=== PATIENT | male | born 1970 | race Caucasian/White ===

== ENCOUNTER 2016-08-01 16:18 | Emergency (ER) | payer OTHER ==
--- NOTE | 2016-08-01 16:34 | PDOC ---
GI Bleed/Rectal Complaint HPI - General Chief Complaint: GI Bleed / Rectal Pain Stated Complaint: feels like he is starting to bleed Date Seen by Provider: 08/01/16 Time Seen by Provider: 16:30 Source: POSITIVE: Patient, Spouse Exam Limitations: POSITIVE: No limitations Nurse's Notes Reviewed & Considered: Yes - History of Present Illness Initial Comments: Patient comes in today with weakness, chills, and shortness of breath. He was recently seen and hospitalized here at [facility] and then transferred to [facility] with a GI bleed. While here in the hospital he received 6 units of blood prior to his transfer. Review of laboratory findings from [facility] show hemoglobin 9.7 hematocrit 28.5 white count of 18.5 platelets 100 with a PT of 11.4 INR of 1.05. Body Location Affected: REPORTS: Abdomen Timing: REPORTS: Constant, Unknown (onset time) Duration: Unknown Severity: Severe Quality: REPORTS: Cramping, "Pain", Sharpness, Throbbing Context: REPORTS: None Associated Symptoms: REPORTS: Periumbilical, Nausea Similar Symptoms Previously: Yes (GI bleed from esophageal mass.) Recent Care Received: REPORTS: Recently Seen, Treated by MD, Hospitalized - Patient Home Medications Home Medications: Home Medications Cetirizine HCl [Zyrtec] 10 mg PO DAILY tab 11/28/14 Amlodipine Besylate 1 tab PO DAILY #90 tab 12/26/15 Lisinopril 1 tab PO DAILY #90 tab 12/26/15 Ondansetron [Zofran Odt] 8 mg PO Q8H #30 tab 06/07/16 Duloxetine HCl [Cymbalta] 1 cap PO QD #30 cap 06/14/16 Pregabalin [Lyrica] 1 cap PO BID #60 cap 06/14/16 Dronabinol [Marinol] 5 mg PO Q4H PRN #120 cap 06/28/16 Fentanyl 12 mcgh TRANSDERM Q72H #10 patch 06/28/16 Capecitabine [Xeloda] 1,500 mg PO BID tab 07/21/16 Oxaliplatin 280 mg IV q 3 weeks vial 07/21/16 Prochlorperazine Maleate 10 mg PO DAILY #45 07/21/16 predniSONE Tab [Deltasone Tab] 2 tab PO DAILY #10 tab 07/21/16 - Patient Allergies Allergies/Adverse Reactions: Allergies Allergy/AdvReac Type Severity Reaction Status Date / Time erythromycin base Allergy .GI UPSET Verified 07/28/16 06:44 Past Medical History - heen HEENT History: Denies History Cardiovascular History: Hypertension Respiratory History: Snoring Gastrointestinal History:  Additional Gastrointestinal History: ESOPHAGEAL MASS. DIFFICULTY SWALLOWING Genitourinary History: Denies History Endocrine History: Denies History Musculoskeletal History: Arthritis, Back Pain Prosthesis or Implant: No Additional Musculoskeletal History: LUMBAR DISC DISEASE Neurological History: Denies History Blood Disorders: Anemia Psychiatric History: Denies History History of Sexually Transmitted Diseases: No Cancer History: Denies History Cancer Treatment / Date(s) of Treatment: WAS DUE FOR CHEMO TUESDAY LAST WEEK History of MDRO: No History of Other Communicable Diseases: No Alcohol Use: Heavy Substance Use Type: None Previous Surgical History: Yes Type / Date of Surgery: EGD WITH BX/APPY/ LEFT KNEE SCOPE X 2/ RIGHT KNEE SCOPE X 1. RIGHT SHOULDER SCOPE X 2/LEFT SHOULDER SCOPE X 1/LEFT ANKLE FUSION/OPEN LEFT KNEE SX Anesthesia Reactions: No Malignant Hyperthermia: No Significant Family History: Cancer, Hypertension ROS - Limitations ROS Limitations: No Limitations Constitution: REPORTS: Chills Cardiovascular: REPORTS: Denies Cardiac Symptoms Respiratory: REPORTS: Shortness Of Breath Neurological: REPORTS: Denies Neuro Symptoms Gastrointestinal: REPORTS: Abdominal Pain, Nausea Musculoskeletal: REPORTS: Denies MS Symptoms Genitourinary: REPORTS: Denies Symptoms Eyes: REPORTS: Denies Symptoms ENT: REPORTS: Denies Symptoms Skin: REPORTS: Denies Skin Symptoms Lympathic: REPORTS: Swollen Glands (cervical region with tender nodes.) Immunologic: POSITIVE: Denies Symptoms Psychiatric: POSITIVE: Denies Psych Symptoms GI Bleed / Rectal Complaint PE - General Appearance General Appearance: POSITIVE: Alert, Cooperative, Lethargic, Moderate Distress - HEENT HEENT: POSITIVE: Head Inspection Nml, Eyes Inspection Nml, Ears Inspection Nml, Nose Inspection Nml, Oral/Dental Inspect. Nml, Pharynx Inspect. Nml, PERRL, EOMI - Neck Neck: POSITIVE: Lymphadenopathy - Respiratory Respiratory: POSITIVE: No Respiratory Distress - Cardiovascular Cardiovascular: POSITIVE: Regular Rate and Rhythm, Heart Sounds Normal - Abdomen Abdomen: Soft: (All Quadrants), Normal Bowel Sounds: (All Quadrants), Tenderness Noted: (LLQ), (RLQ), (LUQ), (RUQ) - Skin Skin: POSITIVE: Color Normal, No Rash, Warm, Dry - Extremities Extremity: Non-Tender: (All Extremities), Normal ROM: (All Extremities), Normal Inspection: (All Extremities) - Neurological / Psychological Neurological: POSITIVE: Affect Apporpriate, Oriented X3 GI Bleed / Rectal Progress - Results Reviewed by me Lab Results Reviewed: Yes Lab Results:: Laboratory Results 08/01/16 Range/Units 16:31 WBC 16.29 H (4.8-10.8) 10^3/uL RBC 3.35 L (4.70-6.10) 10^6/uL Hgb 9.9 L (14.0-18.0) g/dL Hct 29.7 L (42.0-52.0) % MCV 88.7 (80-90) FL MCH 29.6 (27-31) PG MCHC 33.3 (33-37) g/dL RDW Std Deviation 50.4 H (39-50) fL RDW Coeff of Urban 18.2 H (11.5-14.5) % Plt Count 127 L (140-350) 10*3/uL MPV 10.9 (7.4-12.2) FL Neutrophils % (Manual) 69 (50-80) % Band Neutrophils % 2 (0-10) % Lymphocytes % (Manual) 21 (10-50) % Monocytes % (Manual) 4 (0-12) % Eosinophils % (Manual) 0 (0-8) % Basophils % (Manual) 1 (0-1) % Metamyelocytes % 3 % Myelocytes % 0 % Promyelocytes % 0 % Blast Cells 0 (0-1) % WBC Morphology Comment Normal morphology (NORM) Plt Morphology Comment Normal morphology (NORM) RBC Morph Comment See comments (NORM) PT 10.4 (9.7-11.4) secs INR 1.01 (0.00-5.90) N/A Sodium 133 L (135-145) meq/L Potassium 4.2 (3.8-5.2) meq/L Chloride 98 (98-112) meq/L Carbon Dioxide 27 (23-33) meq/L Anion Gap 8 (5-20) BUN 14 (7-22) mg/dL Creatinine 1.1 (0.70-1.50) mg/dL Estimated GFR > 60 (>60 ml/min/1.73m(2)) BUN/Creatinine Ratio 12.72 (6-20) Glucose 90 (78-110) mg/dL Calculated Osmolality 276.0 (267-292) mOsm/kg Calcium 8.6 L (8.7-10.7) mg/dL Magnesium 2.0 (1.6-2.4) mg/dL Total Bilirubin 0.7 (0.3-1.2) mg/dL AST 65 H (21-57) IU/L ALT 56 (21-72) IU/L Alkaline Phosphatase 247 H (38-126) IU/L Total Protein 6.1 (6.1-8.0) g/dL Albumin 3.3 L (3.5-4.8) g/dL Globulin 2.8 (2.50-4.10) g/dL Albumin/Globulin Ratio 1.10 L (1.3-2.0) mg/g - Patient's Progress Pain Medication Addressed: POSITIVE: Yes Re-Examine Time:: 17:35 (improved pain and weakness.) Status: POSITIVE: Improved MDM / ED Course: Patient brought into the emergency Department, examined, an IV was started, blood drawn and sent to the lab for studies. Patient received a liter of normal , morphine sulfate, and Zofran. His symptoms did improve. Laboratory findings: EKG shows him to have improved since he was seen at [facility] to 9.9. 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 Plan: Discharge home follow up with his oncologist on Tuesday. - Consult Counseled: POSITIVE: Patient, Family, RE: Lab Results, RE: DX, RE: Need for F/U Patient Care Time - Estimated PCT Patient Care Time (In Minutes): 60 Vital Signs - VS Reviewed Vital Signs Reviewed: Yes Discharge Clinical Impression: Abdominal pain Discharge Disposition: Discharged to Home Condition: Fair Patient Instructions Given at Discharge: Gastrointestinal Bleeding (ED)
[2016-08-01 16:50] LABS: HEMATOCRIT 29.7 % (42.0-52.0); HEMOGLOBIN 9.9 g/dL (14.0-18.0); MEAN CORPUSCULAR HEMOGLOBIN 29.6 PG (27-31); MEAN CORPUSCULAR HGB CONC 33.3 g/dL (33-37); MEAN PLATELET VOLUME 10.9 FL (7.4-12.2); RDW COEFFICIENT OF VARIATION 18.2 % (11.5-14.5); RED BLOOD COUNT 3.35 10^6/uL (4.70-6.10); WHITE BLOOD COUNT 16.29 10^3/uL (4.8-10.8)
[2016-08-01] MEDS: NORMAL SALINE 10 ML SYRINGE FLUSH IVP PRN (16:51)
[2016-08-01] MEDS: Sodium Chloride 0.9% 1,000 ML PRIMARY IV ONE (16:51)
[2016-08-01] MEDS: ONDANSETRON 4 MG/2 ML VIAL IVP ONE (16:53)
[2016-08-01] MEDS: MORPHINE SULFATE 2 MG/1 ML IVP ONE (16:54)
[2016-08-01 16:56] LABS: PROTHROMBIN TIME 10.4 secs (9.7-11.4)
[2016-08-01 16:57] LABS: ASPARTATE AMINO TRANSFERASE 65 IU/L (21-57); BILIRUBIN,TOTAL 0.7 mg/dL (0.3-1.2); BLOOD UREA NITROGEN 14 mg/dL (7-22); BUN/CREATININE RATIO 12.72 (6-20); CALCIUM 8.6 mg/dL (8.7-10.7); CHLORIDE 98 meq/L (98-112); CREATININE 1.1 mg/dL (0.70-1.50); EST GLOMERULAR FILTRATION > 60 (>60 ml/min/1.73m(2)); GLUCOSE 90 mg/dL (78-110); POTASSIUM 4.2 meq/L (3.8-5.2); SODIUM 133 meq/L (135-145); TOTAL PROTEIN 6.1 g/dL (6.1-8.0)
[2016-08-01 17:02] LABS: BAND NEUTROPHILS % 2 % (0-10); NEUTROPHILS % (MANUAL) 69 % (50-80); PLATELET MORPHOLOGY COMMENT NORMAL MORPHOLOGY (NORM)
[2016-08-01 17:03] LABS: BASOPHILS % (MANUAL) 1 % (0-1); EOSINOPHILS % (MANUAL) 0 % (0-8); LYMPHOCYTES % (MANUAL) 21 % (10-50); METAMYELOCYTES % 3 %; MONOCYTES % (MANUAL) 4 % (0-12); MYELOCYTES % 0 %; PROMYELOCYTES % 0 %
[2016-08-01] MEDS ORDERED: MORPHINE SULFATE 4 MG/1 ML ONE (17:38)
[2016-08-01 17:41] VITALS: RESP 14; TEMP 96.1
[2016-08-01] MEDS: MORPHINE SULFATE 4 MG/1 ML IVP ONE (17:41)
[2016-08-01] MEDS ORDERED: HEPARIN 500 UNIT/5 ML SYRINGE FOR CENTRAL LINE IVP ONE (17:47)
[2016-08-01] MEDS: HEPARIN 500 UNIT/5 ML SYRINGE FOR CENTRAL LINE IVP ONE (17:51)
== END 2016-08-01 18:02 | disposition home or self-care (01) ==
LOC: ER 16:18
DX: R10.84 Generalized abdominal pain (principal); R06.02 Shortness of breath; R53.1 Weakness
CPT/HCPCS: 80053; 83735; 85007; 85610; 96361; 96374; 96375; 96376; 99283; J2270; J2405; J7030

== ENCOUNTER → 2016-10-15 | Outpatient (CLI) | payer OTHER ==
[2016-10-15 08:45] LABS: HEMATOCRIT 29.4 % (42.0-52.0); HEMOGLOBIN 9.5 g/dL (14.0-18.0); MEAN CORPUSCULAR HEMOGLOBIN 32.4 PG (27-31); MEAN CORPUSCULAR HGB CONC 32.3 g/dL (33-37); RED BLOOD COUNT 2.93 10^6/uL (4.70-6.10)
[2016-10-15 08:55] LABS: BLOOD UREA NITROGEN 7 mg/dL (7-22); CALCIUM 9.7 mg/dL (8.7-10.7); EST GLOMERULAR FILTRATION > 60 (>60 ml/min/1.73m(2)); SERUM ALBUMIN 3.7 g/dL (3.5-4.8)
[2016-10-15 09:50] LABS: PLATELET MORPHOLOGY COMMENT NORMAL MORPHOLOGY (NORM); WBC MORPHOLOGY COMMENT NORMAL MORPHOLOGY (NORM)
[2016-10-15 09:51] LABS: BAND NEUTROPHILS % 2 % (0-10); BASOPHILS % (MANUAL) 1 % (0-1); EOSINOPHILS % (MANUAL) 2 % (0-8); LYMPHOCYTES % (MANUAL) 64 % (10-50); METAMYELOCYTES % 2 %; MONOCYTES % (MANUAL) 1 % (0-12); MYELOCYTES % 0 %; NEUTROPHILS % (MANUAL) 27 % (50-80); PROMYELOCYTES % 0 %; RBC MORPHOLOGY COMMENT SEE COMMENTS (NORM)
== END ==
LOC: LAB 08:19
PROVIDERS: ATTEND Internal Medicine
DX: C78.89 Secondary malignant neoplasm of other digestive organs (principal)
CPT/HCPCS: 36415; 80053; 85007

== ENCOUNTER → 2016-11-04 | Outpatient (CLI) | payer OTHER ==
[2016-11-04 14:03] LABS: HEMATOCRIT 31.4 % (42.0-52.0); HEMOGLOBIN 10.2 g/dL (14.0-18.0); MEAN CORPUSCULAR HEMOGLOBIN 33.1 PG (27-31); MEAN CORPUSCULAR HGB CONC 32.5 g/dL (33-37); MEAN CORPUSCULAR VOLUME 101.9 FL (80-90); MEAN PLATELET VOLUME 10.3 FL (7.4-12.2); PLATELET MORPHOLOGY COMMENT NORMAL MORPHOLOGY (NORM); RBC MORPHOLOGY COMMENT NORMAL MORPHOLOGY (NORM); RED BLOOD COUNT 3.08 10^6/uL (4.70-6.10); WBC MORPHOLOGY COMMENT NORMAL MORPHOLOGY (NORM)
[2016-11-04 14:04] LABS: BAND NEUTROPHILS % 1 % (0-10); BASOPHILS % (MANUAL) 2 % (0-1); EOSINOPHILS % (MANUAL) 2 % (0-8); LYMPHOCYTES % (MANUAL) 21 % (10-50); MONOCYTES % (MANUAL) 9 % (0-12); NEUTROPHILS % (MANUAL) 63 % (50-80)
[2016-11-04 14:05] LABS: METAMYELOCYTES % 2 %
== END ==
LOC: LAB 13:16
PROVIDERS: ATTEND Internal Medicine
DX: C78.89 Secondary malignant neoplasm of other digestive organs (principal)
CPT/HCPCS: 36415; 85007

== ENCOUNTER → 2016-11-10 | Outpatient (CLI) | payer OTHER ==
[2016-11-10 11:44] LABS: HEMATOCRIT 30.5 % (42.0-52.0); HEMOGLOBIN 9.7 g/dL (14.0-18.0); MEAN CORPUSCULAR HEMOGLOBIN 32.7 PG (27-31); MEAN CORPUSCULAR HGB CONC 31.8 g/dL (33-37); MEAN CORPUSCULAR VOLUME 102.7 FL (80-90); MEAN PLATELET VOLUME 10.2 FL (7.4-12.2); RED BLOOD COUNT 2.97 10^6/uL (4.70-6.10)
[2016-11-10 11:55] LABS: BLOOD UREA NITROGEN 10 mg/dL (7-22); BUN/CREATININE RATIO 14.28 (6-20); CALCIUM 9.6 mg/dL (8.7-10.7); EST GLOMERULAR FILTRATION > 60 (>60 ml/min/1.73m(2)); SERUM ALBUMIN 3.8 g/dL (3.5-4.8)
[2016-11-10 12:04] LABS: BAND NEUTROPHILS % 3 % (0-10); BASOPHILS % (MANUAL) 4 % (0-1); EOSINOPHILS % (MANUAL) 5 % (0-8); LYMPHOCYTES % (MANUAL) 14 % (10-50); MONOCYTES % (MANUAL) 4 % (0-12); NEUTROPHILS % (MANUAL) 70 % (50-80)
[2016-11-10 12:05] LABS: PLATELET MORPHOLOGY COMMENT NORMAL MORPHOLOGY (NORM); RBC MORPHOLOGY COMMENT NORMAL MORPHOLOGY (NORM); WBC MORPHOLOGY COMMENT NORMAL MORPHOLOGY (NORM)
== END ==
LOC: LAB 11:19
PROVIDERS: ATTEND Internal Medicine
DX: C16.0 Malignant neoplasm of cardia (principal)
CPT/HCPCS: 36415; 80053; 82378; 85007; 85027

== ENCOUNTER → 2016-11-17 | Outpatient (CLI) | payer OTHER ==
[2016-11-17 08:22] LABS: HEMATOCRIT 32.8 % (42.0-52.0); HEMOGLOBIN 10.4 g/dL (14.0-18.0); MEAN CORPUSCULAR HEMOGLOBIN 32.9 PG (27-31); MEAN CORPUSCULAR HGB CONC 31.7 g/dL (33-37); MEAN CORPUSCULAR VOLUME 103.8 FL (80-90); MEAN PLATELET VOLUME 9.8 FL (7.4-12.2); RED BLOOD COUNT 3.16 10^6/uL (4.70-6.10)
[2016-11-17 08:34] LABS: BAND NEUTROPHILS % 8 % (0-10); NEUTROPHILS % (MANUAL) 78 % (50-80); PLATELET MORPHOLOGY COMMENT NORMAL MORPHOLOGY (NORM); WBC MORPHOLOGY COMMENT NORMAL MORPHOLOGY (NORM)
[2016-11-17 08:35] LABS: BASOPHILS % (MANUAL) 0 % (0-1); EOSINOPHILS % (MANUAL) 0 % (0-8); LYMPHOCYTES % (MANUAL) 7 % (10-50); MONOCYTES % (MANUAL) 7 % (0-12)
[2016-11-17 08:36] LABS: RBC MORPHOLOGY COMMENT SEE COMMENTS (NORM)
== END ==
LOC: LAB 08:03
PROVIDERS: ATTEND Internal Medicine
DX: C16.0 Malignant neoplasm of cardia (principal)
CPT/HCPCS: 36415; 85007

== ENCOUNTER → 2016-11-29 | Outpatient (CLI) | payer OTHER ==
[2016-11-29 12:43] LABS: BASOPHILS # (AUTO) 0.02 10*3/UL; BASOPHILS % (AUTO) 0.9 % (0-1); EOSINOPHILS # (AUTO) 0.13 10*3/UL; EOSINOPHILS % (AUTO) 5.6 % (0-8); HEMATOCRIT 32.3 % (42.0-52.0); HEMOGLOBIN 10.4 g/dL (14.0-18.0); LYMPHOCYTES # (AUTO) 0.58 10*3/uL; MEAN CORPUSCULAR HEMOGLOBIN 33.1 PG (27-31); MEAN CORPUSCULAR HGB CONC 32.2 g/dL (33-37); MEAN CORPUSCULAR VOLUME 102.9 FL (80-90); MEAN PLATELET VOLUME 10.2 FL (7.4-12.2); MONOCYTES # (AUTO) 0.66 10*3/UL (0.3-0.8); MONOCYTES % (AUTO) 28.2 % (5-15); NEUTROPHILS # (AUTO) 0.93 10*3/UL; NEUTROPHILS % (AUTO) 39.6 % (50-80); RED BLOOD COUNT 3.14 10^6/uL (4.70-6.10)
[2016-11-29 13:55] LABS: PLATELET MORPHOLOGY COMMENT NORMAL MORPHOLOGY (NORM); WBC MORPHOLOGY COMMENT NORMAL MORPHOLOGY (NORM)
[2016-11-29 13:56] LABS: RBC MORPHOLOGY COMMENT SEE COMMENTS (NORM)
== END ==
LOC: LAB 12:17
PROVIDERS: ATTEND Internal Medicine
DX: C16.0 Malignant neoplasm of cardia (principal)
CPT/HCPCS: 36415; 85025

== ENCOUNTER → 2016-12-06 | Outpatient (CLI) | payer OTHER ==
[2016-12-06 12:23] LABS: BASOPHILS # (AUTO) 0.01 10*3/UL; BASOPHILS % (AUTO) 0.4 % (0-1); EOSINOPHILS # (AUTO) 0.35 10*3/UL; EOSINOPHILS % (AUTO) 14.8 % (0-8); HEMATOCRIT 32.2 % (42.0-52.0); HEMOGLOBIN 10.4 g/dL (14.0-18.0); LYMPHOCYTES # (AUTO) 0.66 10*3/uL; MEAN CORPUSCULAR HEMOGLOBIN 33.5 PG (27-31); MEAN CORPUSCULAR HGB CONC 32.3 g/dL (33-37); MEAN CORPUSCULAR VOLUME 103.9 FL (80-90); MEAN PLATELET VOLUME 9.4 FL (7.4-12.2); MONOCYTES % (AUTO) 21.2 % (5-15); NEUTROPHILS # (AUTO) 0.83 10*3/UL; NEUTROPHILS % (AUTO) 35.2 % (50-80)
[2016-12-06 12:42] LABS: PLATELET MORPHOLOGY COMMENT NORMAL MORPHOLOGY (NORM); WBC MORPHOLOGY COMMENT NORMAL MORPHOLOGY (NORM)
[2016-12-06 12:43] LABS: RBC MORPHOLOGY COMMENT SEE COMMENTS (NORM)
[2016-12-06 15:24] LABS: BLOOD UREA NITROGEN 13 mg/dL (7-22); BUN/CREATININE RATIO 21.66 (6-20); CALCIUM 9.3 mg/dL (8.7-10.7); EST GLOMERULAR FILTRATION > 60 (>60 ml/min/1.73m(2)); SERUM ALBUMIN 3.8 g/dL (3.5-4.8)
== END ==
LOC: LAB 11:49
PROVIDERS: ATTEND Internal Medicine
DX: C16.0 Malignant neoplasm of cardia (principal)
CPT/HCPCS: 36415; 80053; 85025

== ENCOUNTER → 2017-02-03 | Outpatient (CLI) | payer OTHER ==
--- NOTE | 2017-02-03 19:31 | DI ---
ULTRASOUND-GUIDED PARACENTESIS, 02/03/2017 3:36 PM: Clinical History: Esophageal cancer with liver metastases. A CT scan of the abdomen and pelvis perfor med today at another facility revealed significant ascites. Previous Exam: None at this facility. A "time out" session verified the patient's name and date of . The patient's was present du ring discussion of this procedure and during the procedure itself. Informed signed consent was then o btained for this procedure. The patient was informed of benefits and risks, to include but not be cruz ited to: allergies to medications (skin preparation agents, local anesthetic, and contrast agent), in fection, and bowel perforation. The right lower quadrant was prepped with ChloraPrep with Tint. 1% li docaine without epinephrine was used for intradermal and subcutaneous local anesthesia. With ultrasou nd guidance, a paracentesis needle needle introduced into the direction of the peritoneal cavity. Bec ause I angled the blunt trocar inferiorly toward the optimum location of a pocket of ascites, the tro car did not penetrate deep peritoneum and apparently traveled inferiorly probably between the deep po rtion of the rectus muscle and the rectus fascia. No fluid could be obtained in the trocar was withdr awn and redirected directly perpendicular. The second pass resulted in uncomplicated entrance into th e peritoneal cavity. Straw colored clear fluid was immediately retrieved and the tubing was then conn ected to the Vacutainer bottles. A total of approximately 3300 mL of ascitic fluid was aspirated. At the completion of the exam, additional fluid could not be obtained because the end hole catheter was abutting either the mesentery or bowel wall. Postprocedural ultrasound revealed small pockets of flui d in the left and right lower quadrants and in the deep portion of the pelvis. The estimated volume o f these 3 pockets of fluid was approximately 500 mL. Because less than 4-5 L of ascitic fluid was asp irated, no albumin replacement was administered. Blood pressure measurements were obtained on the lef t arm in the supine and sitting positions pre-and post procedure. The measurements were 118/76 and 11 0/70, supine and sitting respectively, before the procedure and 114/73 and 100/74, supine and sitting respectively after the procedure. The patient experienced significant abdominal and respiratory reli ef following the paracentesis. He was discharged from the radiology department in stable, improved co ndition. All of the fluid was sent to the laboratory for cytology. Readin. Successful paracentesis as above. No albumin was administered. 2. The initial attempt was unsuccessful and scans over the abdominal wall showed no evidence of a he matoma. I explained the reason for the first attempt being unsuccessful as a result of my attempting to direct the needle obliquely rather than perpendicular to the peritoneum. They appeared to understa nd my explanation.
== END ==
LOC: US 15:24
PROVIDERS: ATTEND Radiology Radiation Oncology
DX: R18.8 Other ascites (principal); C15.9 Malignant neoplasm of esophagus, unspecified; C16.0 Malignant neoplasm of cardia
CPT/HCPCS: 49083; 76942

== ENCOUNTER → 2017-02-04 | Outpatient (CLI) | payer OTHER ==
--- NOTE | 2017-02-04 17:56 | DI ---
GALLBLADDER AND LIVER ULTRASOUND, 02/04/2017 2:44 PM: Clinical History: Ascites. Esophageal cancer with known liver metastases. Previous Exam: 05/17/2016. Technique: Scans are performed through the right upper quadrant in multiple projections. The gallbladder is not visualized. The common bile also is not visualized. The pancreas is obscured b y bowel gas. The liver shows multiple foci of increased echogenicity that are less well-defined than on previous studies and these are consistent with liver metastases. Scans are performed through the p ortal vein from the splenic portal to the main portal vein as well as the intrahepatic portal veins. The SMV was also visualized. Flow is documented in all of these branches and there is documented flow toward the liver. The spleen is visualized and is normal. There is a small amount of ascites and a s mall right pleural effusion. The IVC and aorta could not be visualized. The right kidney was not imag ed. Readin. Liver metastases are identified. There is a small amount of ascites. The splenic portal, main por felipa vein, as well as the SMV and intrahepatic portal branches all are normal without evidence of clot or reversal of flow. 2. The spleen is normal. 3. Small right pleural effusion. 4. The pancreas, IVC, and aorta are obscured by gas. The right kidney was not imaged.
== END ==
LOC: US 14:41
PROVIDERS: ATTEND Radiology Radiation Oncology
DX: C16.0 Malignant neoplasm of cardia (principal); C78.7 Secondary malignant neoplasm of liver and intrahepatic bile duct; R18.8 Other ascites; J90 Pleural effusion, not elsewhere classified
CPT/HCPCS: 76705

== ENCOUNTER → 2017-02-28 | Outpatient (CLI) | payer OTHER ==
[2017-02-28 12:23] LABS: HEMATOCRIT 32 % (42.0-52.0); RED BLOOD COUNT 3.36 10^6/uL (4.70-6.10)
[2017-02-28 12:24] LABS: MEAN CORPUSCULAR HEMOGLOBIN 32.7 PG (27-31); MEAN CORPUSCULAR HGB CONC 33.4 g/dL (33-37); MEAN CORPUSCULAR VOLUME 97.9 FL (80-90); MEAN PLATELET VOLUME 10.1 FL (7.4-12.2)
[2017-02-28 12:25] LABS: WBC MORPHOLOGY COMMENT NORMAL MORPHOLOGY (NORM)
[2017-02-28 12:26] LABS: BAND NEUTROPHILS % 0 % (0-10); LYMPHOCYTES % (MANUAL) 24 % (10-50); NEUTROPHILS % (MANUAL) 64 % (50-80); PLATELET MORPHOLOGY COMMENT NORMAL MORPHOLOGY (NORM); RBC MORPHOLOGY COMMENT SEE COMMENTS (NORM)
[2017-02-28 12:27] LABS: BASOPHILS % (MANUAL) 0 % (0-1); EOSINOPHILS % (MANUAL) 0 % (0-8); MONOCYTES % (MANUAL) 12 % (0-12)
[2017-02-28 12:40] LABS: BLOOD UREA NITROGEN 11 mg/dL (7-22); BUN/CREATININE RATIO 12.22 (6-20); CALCIUM 8.9 mg/dL (8.7-10.7); EST GLOMERULAR FILTRATION > 60 (>60 ml/min/1.73m(2)); SERUM ALBUMIN 2.9 g/dL (3.5-4.8)
== END ==
LOC: LAB 10:42
PROVIDERS: ATTEND Internal Medicine
DX: C15.9 Malignant neoplasm of esophagus, unspecified (principal); C78.7 Secondary malignant neoplasm of liver and intrahepatic bile duct
CPT/HCPCS: 36415; 80053; 82378; 85007

== ENCOUNTER 2017-03-05 21:15 | Emergency (ER) | payer OTHER ==
[2017-03-05] MEDS ORDERED: LIDOCAINE 2.5% /PRILOCAINE 2.5% 5 GM CREAM TOPICAL ONE ×2 (21:25→21:56)
[2017-03-05] MEDS ORDERED: NORMAL SALINE 10 ML SYRINGE FLUSH IVP PRN (21:27)
[2017-03-05] MEDS ORDERED: ONDANSETRON 4 MG/2 ML VIAL IVP ONE (21:27)
[2017-03-05] MEDS ORDERED: Sodium Chloride 0.9% 1,000 ML PRIMARY IV ONE (21:27)
--- NOTE | 2017-03-05 21:32 | PDOC ---
Nausea/Vomiting/Diarrhea HPI - General Chief Complaint: Nausea / Vomiting / Diarrhea Stated Complaint: DIARRHEA Date Seen by Provider: 03/05/17 Time Seen by Provider: 21:26 Source: POSITIVE: Patient, Spouse Exam Limitations: POSITIVE: No limitations Nurse's Notes Reviewed & Considered: Yes - History of Present Illness Initial Comments: This is a 46-year-old male who presents to the emergency department with a history of increasing nausea and vomiting since last night associated with crampy abdominal pain. He developed diarrhea this evening. He describes the pain as a sharp stabbing type pain is diffuse with no specific trigger. He has no hematemesis or coffee-ground emesis, no melena hematochezia. No urinary frequency or burning, no gross hematuria. He's had some chills but no documented fevers. He is somewhat lightheaded. His states that she hasn' t been able to get more than about thousand calories into him for the past week , he's had been able to keep nothing down for the past 24 hours. - Patient Home Medications Home Medications: Home Medications Cetirizine HCl [Zyrtec] 10 mg PO DAILY tab 11/28/14 Dronabinol [Marinol] 5 mg PO Q4H PRN #120 cap 08/17/16 Ondansetron [Zofran Odt] 8 mg PO Q8H #30 tab 08/30/16 Hydromorphone HCl [Dilaudid] 2 mg PO Q4H #120 ml 10/28/16 Naloxegol Oxalate [Movantik] 25 mg PO QD #30 tab 10/28/16 Pantoprazole Sodium 1 tab PO BID #60 tab 11/02/16 fentaNYL Patch 25mcg [Duragesic Patch 25mcg] 25 mcgh TRANSDERM Q72H #1 box 01/17 Duloxetine HCl [Cymbalta] 1 cap PO BID #60 cap 01/19/17 Pregabalin [Lyrica] 2 cap PO BID #120 cap 01/19/17 - Patient Allergies Allergies/Adverse Reactions: Allergies Allergy/AdvReac Type Severity Reaction Status Date / Time erythromycin base Allergy .GI UPSET Verified 02/05/17 15:41 Past Medical History - heen HEENT History: Denies History Cardiovascular History: Hypertension Respiratory History: Snoring Additional Gastrointestinal History: ESOPHAGEAL MASS. DIFFICULTY SWALLOWING Genitourinary History: Denies History Endocrine History: Denies History Musculoskeletal History: Arthritis, Back Pain Prosthesis or Implant: No Additional Musculoskeletal History: LUMBAR DISC DISEASE Neurological History: Denies History Blood Disorders: Anemia Psychiatric History: Denies History History of Sexually Transmitted Diseases: No Cancer History: Denies History Cancer Treatment / Date(s) of Treatment: WAS DUE FOR CHEMO TUESDAY LAST WEEK History of MDRO: No History of Other Communicable Diseases: No Alcohol Use: Heavy Substance Use Type: None Previous Surgical History: Yes Type / Date of Surgery: EGD WITH BX/APPY/ LEFT KNEE SCOPE X 2/ RIGHT KNEE SCOPE X 1. RIGHT SHOULDER SCOPE X 2/LEFT SHOULDER SCOPE X 1/LEFT ANKLE FUSION/OPEN LEFT KNEE SX Anesthesia Reactions: No Malignant Hyperthermia: No Significant Family History: Cancer, Hypertension Past Medical History Reviewed: Reviewed - No Changes ROS - Limitations ROS Limitations: No Limitations Constitution: REPORTS: Chills. DENIES: Fever Cardiovascular: DENIES: Chest Pain Respiratory: REPORTS: Cough Productive. DENIES: Shortness Of Breath Neurological: REPORTS: Dizziness Gastrointestinal: REPORTS: Abdominal Pain, Nausea, Vomitting, Diarrhea. DENIES : Black Stools, Bloody Stools Musculoskeletal: REPORTS: Muscle Aches Genitourinary: DENIES: Dysuria ENT: REPORTS: Congestion, Nasal Drainage Skin: DENIES: Rash Nausea/Vomiting/Diarrhea Exam - General Appearance General Appearance: POSITIVE: Alert, Cooperative, Moderate Distress - HEENT HEENT: NEGATIVE: Scleral Icterus - Respiratory Respiratory: POSITIVE: No Respiratory Distress, Breath Sounds Normal. NEGATIVE : Wheezes, Rales, Rhonchi - Cardiovascular Cardiovascular: POSITIVE: Regular Rate and Rhythm, Heart Sounds Normal. NEGATIVE: Murmur - Chest Chest: POSITIVE: Non Tender - Abdomen Additional Abdominal Details: Abdomen is soft, nondistended, with diffuse moderate to significant tenderness to palpation. He has no rebound or guarding. Active bowel sounds. No hepatomegaly. - Skin Skin: POSITIVE: Warm, Dry, No Rash - Extremities Additional Extremities Details: No pitting edema. - Neurological / Psychological Neurological: POSITIVE: Affect Apporpriate, Oriented X3 N/V/D Progress - Results Reviewed by me Lab Results Reviewed: Yes Lab Results:: Laboratory Results 03/05/17 Range/Units 21:36 WBC 4.79 L (4.8-10.8) 10^3/uL RBC 3.28 L (4.70-6.10) 10^6/uL Hgb 10.5 L (14.0-18.0) g/dL Hct 31.8 L (42.0-52.0) % MCV 97.0 H (80-90) FL MCH 32.0 H (27-31) PG MCHC 33.0 (33-37) g/dL RDW Std Deviation 75.4 H (39-50) fL RDW Coeff of Urban 21.8 H (11.5-14.5) % Plt Count 133 L (140-350) 10*3/uL MPV 9.9 (7.4-12.2) FL Immature Gran % (Auto) 0.6 (0-5) % Neut % (Auto) 63.8 (50-80) % Lymph % (Auto) 15.0 (10-50) % [place] % (Auto) 19.6 H (5-15) % Eos % (Auto) 0.6 (0-8) % Baso % (Auto) 0.4 (0-1) % Immature Gran # (Auto) 0.03 10*3/UL Neut # (Auto) 3.05 10*3/UL Lymph # (Auto) 0.72 10*3/uL [place] # (Auto) 0.94 H (0.3-0.8) 10*3/UL Eos # (Auto) 0.03 10*3/UL Baso # (Auto) 0.02 10*3/UL WBC Morphology Comment Normal morphology (NORM) Plt Morphology Comment Normal morphology (NORM) RBC Morph Comment See comments (NORM) Sodium 138 (135-145) meq/L Potassium 3.0 L (3.8-5.2) meq/L Chloride 106 (98-112) meq/L Carbon Dioxide 22 L (23-33) meq/L Anion Gap 10 (5-20) BUN 7 (7-22) mg/dL Creatinine 0.6 L (0.70-1.50) mg/dL Estimated GFR > 60 (>60 ml/min/1.73m(2)) BUN/Creatinine Ratio 11.66 (6-20) Glucose 82 (78-110) mg/dL Calculated Osmolality 282.0 (267-292) mOsm/kg Calcium 7.1 L (8.7-10.7) mg/dL Total Bilirubin 1.6 H (0.3-1.2) mg/dL AST 69 H (21-57) IU/L ALT 27 (21-72) IU/L Alkaline Phosphatase 354 H (38-126) IU/L Total Protein 4.9 L (6.1-8.0) g/dL Albumin 2.6 L (3.5-4.8) g/dL Globulin 2.3 L (2.50-4.10) g/dL Albumin/Globulin Ratio 1.10 L (1.3-2.0) mg/g Lipase 208 (23-300) IU/L - Patient's Progress Pain Medication Addressed: POSITIVE: Yes Re-examine Time: 23:27 Re-Examine Comment: Patient is feeling better. Lab results were discussed with the patient and his . Status: POSITIVE: Improved MDM / ED Course: Emergency room course: After initial evaluation, his port was accessed. He was given a liter of normal saline. Labs were drawn, pain medication given. He is feeling much better now. The workup indicates that this patient is most likely has a viral gastroenteritis. We'll give him prescriptions for Bentyl and Lomotil and Zofran, he'll be discharged with his . He is return the emergency department if the pain gets worse, fever develops, or vomiting is not controlled. Patient Care Time - Estimated PCT Patient Care Time (In Minutes): 15 Vital Signs - Recent Vital Signs Vital Signs: Vital Signs (Last 8 hours) Temp Pulse Resp BP Pulse Ox 03/05/17 21:15 95.4 F L 76 18 117/85 94 Discharge Clinical Impression: Gastroenteritis Discharge Disposition: Discharged to Home Condition: Stable Patient Instructions Given at Discharge: Gastroenteritis (ED)
[2017-03-05 21:37] LABS: BASOPHILS # (AUTO) 0.02 10*3/UL; BASOPHILS % (AUTO) 0.4 % (0-1); EOSINOPHILS # (AUTO) 0.03 10*3/UL; EOSINOPHILS % (AUTO) 0.6 % (0-8); HEMATOCRIT 31.8 % (42.0-52.0); HEMOGLOBIN 10.5 g/dL (14.0-18.0); LYMPHOCYTES # (AUTO) 0.72 10*3/uL; MEAN PLATELET VOLUME 9.9 FL (7.4-12.2); MONOCYTES # (AUTO) 0.94 10*3/UL (0.3-0.8); MONOCYTES % (AUTO) 19.6 % (5-15); NEUTROPHILS # (AUTO) 3.05 10*3/UL; NEUTROPHILS % (AUTO) 63.8 % (50-80); RED BLOOD COUNT 3.28 10^6/uL (4.70-6.10)
[2017-03-05 21:45] LABS: PLATELET MORPHOLOGY COMMENT NORMAL MORPHOLOGY (NORM); WBC MORPHOLOGY COMMENT NORMAL MORPHOLOGY (NORM)
[2017-03-05 21:46] LABS: RBC MORPHOLOGY COMMENT SEE COMMENTS (NORM)
[2017-03-05 21:49] LABS: BLOOD UREA NITROGEN 7 mg/dL (7-22); BUN/CREATININE RATIO 11.66 (6-20); CALCIUM 7.1 mg/dL (8.7-10.7); EST GLOMERULAR FILTRATION > 60 (>60 ml/min/1.73m(2)); LIPASE 208 IU/L (23-300); SERUM ALBUMIN 2.6 g/dL (3.5-4.8)
[2017-03-05 22:50] VITALS: RESP 18; TEMP 95.4
[2017-03-05] MEDS ORDERED: MORPHINE SULFATE 4 MG/1 ML IVP ONE (23:14)
[2017-03-05] MEDS ORDERED: MORPHINE SULFATE 4 MG/1 ML ONE (23:16)
[2017-03-05] MEDS ORDERED: HEPARIN 500 UNIT/5 ML SYRINGE FOR CENTRAL LINE IVP ONE (23:25)
[2017-03-05] MEDS ORDERED: Diphenoxylate/Atropine 2.5/0.025 mg Tab PO ONE (23:31)
[2017-03-05 23:42] LABS: BILIRUBIN,URINE LARGE (NEG); CLARITY,URINE CLEAR (CLEAR); GLUCOSE, URINE (UA) NEGATIVE (NEG); NITRATE,URINE NEGATIVE (NEG); OCCULT BLOOD,URINE NEGATIVE (NEG); PH,URINE 5.5 (5.0-8.5); PROTEIN,URINE 30 mg/dl (NEG)
[2017-03-05 23:43] LABS: COLOR,URINE DARK YELLOW; URINE SAMPLE TYPE CLEAN CATCH URINE
[2017-03-05 23:47] LABS: BACTERIA,URINE RARE; RBC,URINE 0-1 /hpf; SQUAMOUS EPITHELIAL CELL,UR FEW; WBC,URINE 0-1
== END 2017-03-06 00:25 | disposition home or self-care (01) ==
LOC: ER 21:15
DX: K52.9 Noninfective gastroenteritis and colitis, unspecified (principal); R19.7 Diarrhea, unspecified; R42 Dizziness and giddiness; R05 Cough; R11.2 Nausea with vomiting, unspecified; C15.9 Malignant neoplasm of esophagus, unspecified
CPT/HCPCS: 36415; 80053; 81001; 81003; 83690; 85025; 87493; 96361; 96374; 96375; 99283 ×2; J1642; J2270; J2405; 87040; J7030

== ENCOUNTER → 2017-03-07 | Outpatient (CLI) | payer OTHER ==
[2017-03-07 15:45] LABS: HEMATOCRIT 39.8 % (42.0-52.0); HEMOGLOBIN 13.5 g/dL (14.0-18.0); MEAN CORPUSCULAR HEMOGLOBIN 32.7 PG (27-31); MEAN CORPUSCULAR HGB CONC 33.9 g/dL (33-37); MEAN CORPUSCULAR VOLUME 96.4 FL (80-90); MEAN PLATELET VOLUME 9.8 FL (7.4-12.2); RED BLOOD COUNT 4.13 10^6/uL (4.70-6.10)
[2017-03-07 17:09] LABS: BLOOD UREA NITROGEN 9 mg/dL (7-22); CALCIUM 8.9 mg/dL (8.7-10.7); EST GLOMERULAR FILTRATION > 60 (>60 ml/min/1.73m(2)); SERUM ALBUMIN 3.4 g/dL (3.5-4.8)
[2017-03-07 17:09] LABS: BAND NEUTROPHILS % 0 % (0-10); BASOPHILS % (MANUAL) 0.3 % (0-1); EOSINOPHILS % (MANUAL) 1.3 % (0-8); LYMPHOCYTES % (MANUAL) 10.1 % (10-50); METAMYELOCYTES % 1.5 %; MONOCYTES % (MANUAL) 16.6 % (0-12); NEUTROPHILS % (MANUAL) 70.2 % (50-80); PLATELET MORPHOLOGY COMMENT NORMAL MORPHOLOGY (NORM); RBC MORPHOLOGY COMMENT NORMAL MORPHOLOGY (NORM); WBC MORPHOLOGY COMMENT NORMAL MORPHOLOGY (NORM)
== END ==
LOC: LAB 15:21
PROVIDERS: ATTEND Internal Medicine
DX: C16.0 Malignant neoplasm of cardia (principal)
CPT/HCPCS: 36415; 80053; 82378; 85007; 85027

== ENCOUNTER → 2017-03-14 | Outpatient (CLI) | payer OTHER ==
[2017-03-14 15:35] LABS: HEMATOCRIT 35.4 % (42.0-52.0); HEMOGLOBIN 11.7 g/dL (14.0-18.0); MEAN CORPUSCULAR HEMOGLOBIN 31.5 PG (27-31); MEAN CORPUSCULAR HGB CONC 33.1 g/dL (33-37); MEAN CORPUSCULAR VOLUME 95.4 FL (80-90); MEAN PLATELET VOLUME 9.9 FL (7.4-12.2); RED BLOOD COUNT 3.71 10^6/uL (4.70-6.10)
[2017-03-14 16:30] LABS: BLOOD UREA NITROGEN 16 mg/dL (7-22); CALCIUM 8.6 mg/dL (8.7-10.7); EST GLOMERULAR FILTRATION > 60 (>60 ml/min/1.73m(2)); SERUM ALBUMIN 2.9 g/dL (3.5-4.8)
[2017-03-15 12:12] LABS: BASOPHILS # (AUTO) 0 10*3/UL; BASOPHILS % (AUTO) 0 % (0-1); EOSINOPHILS # (AUTO) 0.05 10*3/UL; EOSINOPHILS % (AUTO) 0.9 % (0-8); LYMPHOCYTES # (AUTO) 0.32 10*3/uL; MONOCYTES # (AUTO) 0.09 10*3/UL (0.3-0.8); MONOCYTES % (AUTO) 1.6 % (5-15); NEUTROPHILS # (AUTO) 5.08 10*3/UL; NEUTROPHILS % (AUTO) 91.5 % (50-80)
[2017-03-15 12:13] LABS: RBC MORPHOLOGY COMMENT NORMAL MORPHOLOGY (NORM); WBC MORPHOLOGY COMMENT NORMAL MORPHOLOGY (NORM)
[2017-03-15 12:15] LABS: PLATELET MORPHOLOGY COMMENT SEE COMMENTS (NORM)
== END ==
LOC: LAB 15:19
PROVIDERS: ATTEND Internal Medicine
DX: C16.0 Malignant neoplasm of cardia (principal)
CPT/HCPCS: 36415; 80053; 82378; 85025; 85027

== ENCOUNTER → 2017-03-18 | Outpatient (CLI) | payer OTHER ==
--- NOTE | 2017-03-18 15:19 | DI ---
History: None provided comparison: February 03, 2017 Findings: There are small volume ascites, slightly less as compared with February 04, 2000. There are numerous hypodense hepatic lesions throughout the liver without change. Subjectively, the spleen is slightly enlarged, and unchanged. Pancreas is unremarkable. Right adrenal gland is unremarkable. There is mild left adrenal hypertrophy unchanged. Kidneys are unremarkable Abdominal aorta is a There is mild diffuse thickening of the urinary bladder. This appearance is unchanged. There is no intestinal obstruction. There is no free air. Impression: Numerous hypodense hepatic lesions, without significant change as compared with February 03, 2017. Mild splenomegaly unchanged Small volume ascites, subjectively slightly decreased as compared to previous CT scan. Mild hypertrophy of the left adrenal gland unchanged Mild diffuse thickening of the urinary bladder wall unchanged
--- NOTE | 2017-03-21 09:53 | DI ---
CT CHEST SCAN WITH IV CONTRAST, 03/18/2017 1:41 PM : Clinical History: Mid epigastric pain. The patient has known esophageal cancer with liver metastases. Previous Exam: 07/23/2016. Scans are performed from the base of the neck to the level of the adrenal glands with contrast. 07/23. 65 ml of Isovue 300 was injected IV. The base of the neck and thoracic inlet are normal. There are no abnormal axillary, supraclavicular, mediastinal, or hilar nodes. The heart is normal. The pulmonary arteries are normal and there is no e vidence of pulmonary embolism. No acute infiltrate or effusion is present. The patient has developed a new 4-5 mm nodule in the superior segment of the right lower lobe. Review of the scans from 016 do not show this lesion. There is ascites. Since the last exam, the liver is smaller in size and has a nodular capsule consistent with cirrhosis. In addition, there are still multiple low-density le sions consistent with the previously identified liver metastases. The distal esophagus just above the GE junction still has a thickened appearance and this is presumably the location of the esophageal c ancer. Both adrenal glands and the spleen are normal. READIN. There is no acute infiltrate or effusion. Since the previous exam, a new 4-5 mm noncalcified nodu le is present in the superior segment of the right lower lobe and this is highly suspicious for a pul monary metastasis. 2. There is ascites with liver metastases. Cirrhosis may have developed.
== END ==
LOC: CT 13:30
PROVIDERS: ATTEND Physician Assistant
DX: C16.0 Malignant neoplasm of cardia (principal); R10.13 Epigastric pain
CPT/HCPCS: 71260; 74177

== ENCOUNTER → 2017-03-21 | Outpatient (CLI) | payer OTHER ==
[2017-03-21 13:38] LABS: BASOPHILS # (AUTO) 0.01 10*3/UL; BASOPHILS % (AUTO) 0.2 % (0-1); EOSINOPHILS # (AUTO) 0.05 10*3/UL; EOSINOPHILS % (AUTO) 1.2 % (0-8); HEMOGLOBIN 11.1 g/dL (14.0-18.0); LYMPHOCYTES # (AUTO) 0.41 10*3/uL; MEAN CORPUSCULAR HEMOGLOBIN 32.4 PG (27-31); MEAN CORPUSCULAR HGB CONC 33.6 g/dL (33-37); MEAN CORPUSCULAR VOLUME 96.2 FL (80-90); MEAN PLATELET VOLUME 10.8 FL (7.4-12.2); MONOCYTES # (AUTO) 0.42 10*3/UL (0.3-0.8); MONOCYTES % (AUTO) 10.1 % (5-15); NEUTROPHILS # (AUTO) 3.27 10*3/UL; NEUTROPHILS % (AUTO) 78.5 % (50-80); RED BLOOD COUNT 3.43 10^6/uL (4.70-6.10)
[2017-03-21 13:53] LABS: BLOOD UREA NITROGEN 14 mg/dL (7-22); BUN/CREATININE RATIO 15.55 (6-20); CALCIUM 9.3 mg/dL (8.7-10.7); EST GLOMERULAR FILTRATION > 60 (>60 ml/min/1.73m(2)); SERUM ALBUMIN 3.6 g/dL (3.5-4.8)
[2017-03-21 14:39] LABS: PLATELET MORPHOLOGY COMMENT NORMAL MORPHOLOGY (NORM); RBC MORPHOLOGY COMMENT NORMAL MORPHOLOGY (NORM); WBC MORPHOLOGY COMMENT NORMAL MORPHOLOGY (NORM)
== END ==
LOC: LAB 13:12
PROVIDERS: ATTEND Internal Medicine
DX: C16.0 Malignant neoplasm of cardia (principal)
CPT/HCPCS: 36415; 80053; 85025

== ENCOUNTER → 2017-03-22 | Outpatient (CLI) | payer OTHER ==
--- NOTE | 2017-03-22 09:16 | DI ---
MRI BRAIN SCAN WITHOUT AND WITH IV CONTRAST, 03/22/2017 7:20 AM: Clinical History: Dizziness. Previous Exam: 07/28/2016. Sequences: Axial and sagittal T1 pre contrast and axial and coronal post contrast; axial T2 and FLAIR . Diffusion weighted images with ADC mapping are also performed. Contrast Dose: 18 mL of ProHance (279.3 mg/mL). The 4th, 3rd, and lateral ventricles are of normal size, shape, position, and contour for this patien t's age. There is an abnormal focus of hyperintensity on the T1 and T2 weighted sequences in the left occipital lobe. This is surrounded by edema as well as a rim of hypointensity. Following contrast, t here is modest enhancement around the hypointense ring. These findings are all consistent with a late subacute intracerebral hemorrhage probably in the range between 1-4 weeks in age. There is no signif icant mass effect and there is suggestion of developing atrophic change of the gyri in this area. The re is no other area of hyperintensity noted on the precontrast scans. In the left cerebellar hemisphe re just inferior to the great horizontal fissure is a 3 mm slightly hyperintense lesion on the precon trast scans it shows enhancement following contrast. No other focal area of enhancement is noted. The re is no significant cerebellar or cerebral atrophy. There are no extracerebral mantels or shift of t he midline structures. The paranasal sinuses are normal. Readin. There is a focal hemorrhagic infarct in the left occipital lobe that judging by the presence of t he appearance of the hypointense ring and subtle enhancement would indicate this is a late subacute p hase hemorrhage probably in the range of 1-2 weeks post event. No abnormal vessels are visualized on this study. 2. There is a small 3 mm slightly hyperintense nodule in the left cerebellar hemisphere just inferio r to the great horizontal fissure. Following contrast, this nodule does show enhancement but there is no surrounding edema noted. The patient does have a history of esophageal cancer with liver metastas es. This may represent a metastatic focus.
== END ==
LOC: MRI 07:15
PROVIDERS: ATTEND Physician Assistant
DX: C16.0 Malignant neoplasm of cardia (principal); R42 Dizziness and giddiness
CPT/HCPCS: 70553

== ENCOUNTER 2017-06-18 15:21 | Inpatient (IN) ==
[2017-06-18] MEDS ORDERED: ACETAMINOPHEN 325 MG TABLET PO PRN (15:58)
[2017-06-18] MEDS ORDERED: LIDOCAINE W/ SODIUM BICARB 0.5 ML SYR SUBD PRN (15:58)
[2017-06-18] MEDS ORDERED: CALCIUM CARBONATE 500 MG (TUMS) CHEWABLE TABLET PO PRN (15:58)
[2017-06-18] MEDS ORDERED: DOCUSATE 100 MG CAPSULE PO PRN (15:58)
[2017-06-18] MEDS ORDERED: ONDANSETRON 4 MG/2 ML VIAL IVP PRN (15:58)
[2017-06-18] MEDS ORDERED: HEPARIN 500 UNIT/5 ML SYRINGE FOR CENTRAL LINE IVP ONE ×2 (17:03→23:07)
[2017-06-18 17:21] LABS: BUN/CREATININE RATIO 27.91 (6-20); SERUM ALBUMIN 3.3 g/dL (3.5-4.8)
[2017-06-18 17:38] LABS: Hematocrit [HCT] 26.4 % (42.0-52.0); Hemoglobin [HGB] 8.6 g/dL (14.0-18.0); MEAN CORPUSCULAR HEMOGLOBIN 31.6 PG (27-31); MEAN CORPUSCULAR HGB CONC 32.5 g/dL (33-37); MEAN CORPUSCULAR VOLUME 97 FL (80-90); RED BLOOD COUNT 2.71 10^6/uL (4.70-6.10)
[2017-06-18 17:39] LABS: MEAN PLATELET VOLUME 7.4 FL (7.4-12.2)
[2017-06-18 17:42] LABS: PLATELET MORPHOLOGY COMMENT NORMAL MORPHOLOGY (NORM); RBC MORPHOLOGY COMMENT NORMAL MORPHOLOGY (NORM); WBC MORPHOLOGY COMMENT NORMAL MORPHOLOGY (NORM)
[2017-06-18 17:43] LABS: BAND NEUTROPHILS % 0 % (0-10); BASOPHILS % (MANUAL) 0 % (0-1); EOSINOPHILS % (MANUAL) 0 % (0-8); MONOCYTES % (MANUAL) 8 % (0-12); NEUTROPHILS % (MANUAL) 85 % (50-80)
--- NOTE | 2017-06-18 20:11 | PDOC ---
HPI - History of Present Illness Date and Time of Service: 06/18/2017, 2008 Chief Complaint: Confusion and pain History of Present Illness: This a 46-year-old male with known metastatic lesions to the liver from esophageal cancer with liver failure due to metastatic burden who actually was here as an outpatient yesterday for a paracentesis due to significant abdominal pain. We prescribed fentanyl and the patient went home. He was hopeful for trying to diet home of this disease as he knows he is end-stage and was working on the process of hospice with his and family when he became more confused , has become significantly weakened and despite improved pain control, still has some abdominal pain. He's not had any fevers or chills. Laboratory workup shows worsening synthetic function and possible hepatorenal syndrome. He is urinated only once in the last 24 hours, he's not had a bowel movement in 2 days and he's not had any solid food in the last 5. History was obtained not only from the patient but from his as well as the patient has had some intermittent confusion states related to hepatic encephalopathy. At this time, the family does not believe that they can control the symptoms at home, and they wanted to reevaluate where this liver was at some medically, and determine the next steps. Past Medical History Medical History: 1. 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 2. History of GI bleed related to the above. Surgical History: Has had knee and shoulder surgeries before. Pertinent Family History: No history of heart disease in the family. Patient's father served in [place] and has agent orange exposure. Past Social History: Chews tobacco. for about 20 years, has 3 children. He is retired from the [employer]. History of alcohol use but none currently. Tobacco Use: Never Smoker In the Past 12 Months, Have Used or Abuse Any of the Following Substance: None Alcohol Use: None Medication / Allergies Home Medications: Home Medications Medication Instructions Recorded Confirmed Type ondansetron 8 mg disintegrating 8 mg PO Q8H #30 tab 05/02/17 05/27/17 Rx tablet pantoprazole 40 mg tablet,delayed 40 mg PO BID 30 Days #60 tab 05/27/17 History release pregabalin 100 mg capsule 200 mg PO BID 30 Days #120 cap 05/27/17 05/27/17 History Fentanyl 25 mcg TD Q72H #10 [id number] 06/17/17 Rx Allergies/Adverse Reactions: Allergies 3 Allergy/AdvReac Type Severity Reaction Status Date / Time erythromycin base Allergy .GI UPSET Verified 06/01/17 13:13 Review of Systems - Review of Systems ROS Unobtainable: Due to Mental Status (Due to the patient's back encephalopathy , is very difficult to obtain an accurate review of systems. Throughout the course of the afternoon, the patient has had worsening confusion and somnolence. Per his , Lucrecia, she states that he has had some black or tarry stools slightly and has not urinated in the last 24 hours.) Exam - Vitals Vital Signs: Vital Signs Temperature 98.4 F Temperature Source Temporal Artery Scan Pulse Rate [Pulse Oximeter] 107 Respiratory Rate 12 Blood Pressure [Right Arm] 115/69 Pulse Ox 96 Oxygen Delivery Method Room Air Height 5 ft 10 in Weight 140 lb - General General Appearance: No Acute Distress, Cooperative - Head Additional Head Exam Details: Temporal wasting. - Eye Eye Exam: POSITIVE: Scleral Icterus - ENT ENT Exam: POSITIVE: Mucous Membranes Dry - Neck Neck Exam: No Tenderness, No Lymphadenopathy, No Thyromegaly - Respiratory Respiratory Exam: POSITIVE: Clear to Auscultation - Bilaterally, Breathing Non Labored - Cardiovascular Cardiovascular Exam: POSITIVE: RRR, No Murmur, No Clicks, No Gallops, No Rubs, No JVD - GI/Abdominal GI/Abdominal Exam: POSITIVE: Normal Bowel Sounds, Distended, Positive for Ascites Additional GI/Abdominal Exam Details: Despite patient's statement that he is not having abdominal pain, he does wince in pain with palpation of his abdomen, particularly in the epigastric location. - Rectal Rectal Exam: POSITIVE: Deferred - External Exam: POSITIVE: Deferred Exam: POSITIVE: Deferred - Extremities Extremities Exam: POSITIVE: No Clubbing Present, No Edema Present, No Cyanosis Present - Neurological Neurological Exam: POSITIVE: Alert, No Facial Droop, Speech Intact / Clear, Altered (Intermittently confused and more somnolent probably from hepatic cephalopathy.) - Central Line Examination Central Line Present on Admission: Yes Central Line Type: Med-Port (No erythema) Central Line Site Observations: POSITIVE: Asymptomatic, Intact, Patent Results - Labs CBC and BMP: 06/18/17 17:11 06/18/17 17:11 Additional Lab Results: Laboratory Results 06/18/17 06/18/17 06/18/17 Range/Units 17:11 17:11 17:11 WBC 5.1 (4.8-10.8) 10^3/uL RBC 2.71 L (4.70-6.10) 10^6/uL Hgb 8.6 L (14.0-18.0) g/dL Hct 26.4 L (42.0-52.0) % MCV 97 H (80-90) FL MCH 31.6 H (27-31) PG MCHC 32.5 L (33-37) g/dL RDW Coeff of Urban 16.3 H (11.5-14.5) % Plt Count 94 L (140-350) 10*3/uL MPV 7.4 (7.4-12.2) FL Neutrophils % (Manual) 85 H (50-80) % Band Neutrophils % 0 (0-10) % Lymphocytes % (Manual) 7 L (10-50) % Monocytes % (Manual) 8 (0-12) % Eosinophils % (Manual) 0 (0-8) % Basophils % (Manual) 0 (0-1) % Metamyelocytes % Not Reportable Myelocytes % Not Reportable Promyelocytes % Not Reportable Blast Cells Not Reportable WBC Morphology Comment Normal morphology (NORM) Plt Morphology Comment Normal morphology (NORM) RBC Morph Comment Normal morphology (NORM) PT 12.1 H (9.7-11.4) secs INR 1.14 (0.00-5.90) N/A Sodium 116 L* (135-145) meq/L Potassium 5.2 (3.8-5.2) meq/L Chloride 85 L (98-112) meq/L Carbon Dioxide 16 L (23-33) meq/L Anion Gap 15 (5-20) BUN 67 H (7-22) mg/dL Creatinine 2.4 H (0.70-1.50) mg/dL Estimated GFR 29 (>60 ml/min/1.73m(2)) BUN/Creatinine Ratio 27.91 H (6-20) Glucose 90 (78-110) mg/dL Calculated Osmolality 260.0 L (267-292) mOsm/kg Calcium 9.0 (8.7-10.7) mg/dL Total Bilirubin 20.8 H (0.3-1.2) mg/dL AST 83 H (21-57) IU/L ALT 53 (21-72) IU/L Alkaline Phosphatase 520 H (38-126) IU/L Ammonia 91 H (9.0-33.0) UMOL/L Total Protein 5.8 L (6.1-8.0) g/dL Albumin 3.3 L (3.5-4.8) g/dL Globulin 2.5 (2.50-4.10) g/dL Albumin/Globulin Ratio 1.30 (1.3-2.0) mg/g Assessment and Plan - Patient Problems (1) Cirrhosis Current Visit: Yes Status: Acute Code(s): K74.60 - Unspecified cirrhosis of liver Qualifiers: Hepatic cirrhosis type: other cirrhosis Qualified Code(s): K74.69 - Other cirrhosis of liver (2) Acute renal failure Current Visit: Yes Status: Acute Code(s): N17.9 - Acute kidney failure, unspecified Qualifiers: Acute renal failure type: with acute tubular necrosis Qualified Code(s): N17.0 - Acute kidney failure with tubular necrosis (3) Hepatic encephalopathy Current Visit: Yes Status: Acute Code(s): K72.90 - Hepatic failure, unspecified without coma (4) Metastases to the liver Current Visit: Yes Status: Chronic Code(s): C78.7 - Secondary malignant neoplasm of liver and intrahepatic bile duct (5) Esophageal cancer Current Visit: Yes Status: Chronic Code(s): C15.9 - Malignant neoplasm of esophagus, unspecified Qualifiers: - Assessment / Plan Additional Assessment/Plan Details: Admit the patient. I did labs today to try and get a better idea of synthetic liver function. I think that we should do a urinalysis along with a urine sodium and a urine creatinine to determine if this is hepatorenal syndrome. I spoke candidly with the family, and if this is hepatorenal syndrome, I think that we need to consider treating primary symptoms of pain and discomfort and stopped treating any other medical issues as the patient will likely regardless of any medical therapy we can provide. The family is strongly leaning towards that type of care. They would like patient to be mentally alert as possible over the next couple of days at least, so we will institute lactulose therapy with severe hepatic encephalopathy. He's at a grade 3 encephalopathy, and this will continue to get worse if it's not treated. He is also a potential risk for seizures with a sodium of 116. We will write for some Ativan if that happens. He is so weak that he has not been able to get up out of bed really in the last 24 hours, so we'll place a Frye catheter. He is DO NOT RESUSCITATE per his wishes his 's wishes as well. Prognosis grim for survival long-term. Likely prognosis is less than 2 weeks to live.
[2017-06-18] MEDS ORDERED: LIDOCAINE HCL 2 % 10 ML JELLY URO-JECT TOPICAL PRN (20:18)
[2017-06-18] MEDS ORDERED: LORazepam 2 MG/1 ML VIAL IM PRN (20:19)
[2017-06-18] MEDS ORDERED: LACTULOSE 20 GM PACKET PO ONE (20:20)
[2017-06-18] MEDS ORDERED: DIAZEPAM 10 MG/2 ML (5 MG/1 ML) CARPUJECT IVP PRN ×2 (20:24→23:29)
[2017-06-18] MEDS ORDERED: fentaNYL 25 MCG/HR PATCH TRANSDERM SCH (20:30)
[2017-06-18] MEDS: LACTULOSE 20 GM PACKET PO SCH (21:08)
[2017-06-18] MEDS: PREGABALIN 100 MG CAPSULE PO SCH (21:20)
[2017-06-18 21:57] LABS: BILIRUBIN,URINE LARGE (NEG); CLARITY,URINE CLEAR (CLEAR); COLOR,URINE YELLOW; GLUCOSE, URINE (UA) NEGATIVE (NEG); NITRATE,URINE NEGATIVE (NEG); OCCULT BLOOD,URINE Trace-intact (NEG); PROTEIN,URINE TRACE mg/dl (NEG); UROBILINOGEN,URINE 0.2 mg/dL (0.2)
[2017-06-18 22:01] LABS: BACTERIA,URINE FEW; RBC,URINE 0-1 /hpf; SQUAMOUS EPITHELIAL CELL,UR MODERATE; URINE SAMPLE TYPE CLEAN CATCH URINE; WBC,URINE 0-1
[2017-06-18] MEDS: HEPARIN 500 UNIT/5 ML SYRINGE FOR CENTRAL LINE IVP PRN (23:08)
[2017-06-18] MEDS: NORMAL SALINE 10 ML SYRINGE FLUSH IVP PRN (23:08)
[2017-06-19] MEDS: HEPARIN 500 UNIT/5 ML SYRINGE FOR CENTRAL LINE IVP PRN (05:14)
[2017-06-19] MEDS: NORMAL SALINE 10 ML SYRINGE FLUSH IVP PRN ×2 (05:14→10:02)
[2017-06-19 05:42] LABS: BUN/CREATININE RATIO 26.78 (6-20); SERUM ALBUMIN 3.3 g/dL (3.5-4.8)
[2017-06-19] MEDS ORDERED: Pantoprazole Inj 40 MG in Normal Saline Flush 10 ML IVP SCH (09:00)
[2017-06-19] MEDS: PREGABALIN 100 MG CAPSULE PO SCH ×2 (10:02→22:53)
[2017-06-19] MEDS: LACTULOSE 20 GM PACKET PO SCH ×2 (10:02→17:09)
[2017-06-19 11:11] VITALS: BP 123/78; RESP 16; TEMP 96.9; O2SAT 96
--- NOTE | 2017-06-19 12:22 | PDOC(PROG) ---
Date and Time of Service: 06/19/2017, 1213 Interval History: in pain today, decreased movement. not eating. waxing and waning mental status today. in obvious pain with palpation of abdomen Objective : Data - Labs CBC and BMP: 06/18/17 17:11 06/19/17 05:15 Additional Lab Results: Laboratory Results 06/18/17 06/18/17 06/18/17 Range/Units 17:11 17:11 17:11 WBC 5.1 (4.8-10.8) 10^3/uL RBC 2.71 L (4.70-6.10) 10^6/uL Hgb 8.6 L (14.0-18.0) g/dL Hct 26.4 L (42.0-52.0) % MCV 97 H (80-90) FL MCH 31.6 H (27-31) PG MCHC 32.5 L (33-37) g/dL RDW Coeff of Urban 16.3 H (11.5-14.5) % Plt Count 94 L (140-350) 10*3/uL MPV 7.4 (7.4-12.2) FL Neutrophils % (Manual) 85 H (50-80) % Band Neutrophils % 0 (0-10) % Lymphocytes % (Manual) 7 L (10-50) % Monocytes % (Manual) 8 (0-12) % Eosinophils % (Manual) 0 (0-8) % Basophils % (Manual) 0 (0-1) % Metamyelocytes % Not Reportable Myelocytes % Not Reportable Promyelocytes % Not Reportable Blast Cells Not Reportable WBC Morphology Comment Normal morphology (NORM) Plt Morphology Comment Normal morphology (NORM) RBC Morph Comment Normal morphology (NORM) PT 12.1 H (9.7-11.4) secs INR 1.14 (0.00-5.90) N/A Sodium 116 L* (135-145) meq/L Potassium 5.2 (3.8-5.2) meq/L Chloride 85 L (98-112) meq/L Carbon Dioxide 16 L (23-33) meq/L Anion Gap 15 (5-20) BUN 67 H (7-22) mg/dL Creatinine 2.4 H (0.70-1.50) mg/dL Estimated GFR 29 (>60 ml/min/1.73m(2)) BUN/Creatinine Ratio 27.91 H (6-20) Glucose 90 (78-110) mg/dL Calculated Osmolality 260.0 L (267-292) mOsm/kg Calcium 9.0 (8.7-10.7) mg/dL Total Bilirubin 20.8 H (0.3-1.2) mg/dL AST 83 H (21-57) IU/L ALT 53 (21-72) IU/L Alkaline Phosphatase 520 H (38-126) IU/L Ammonia 91 H (9.0-33.0) UMOL/L Total Protein 5.8 L (6.1-8.0) g/dL Albumin 3.3 L (3.5-4.8) g/dL Globulin 2.5 (2.50-4.10) g/dL Albumin/Globulin Ratio 1.30 (1.3-2.0) mg/g Ur Collection Type Urine Color Urine Clarity (CLEAR) Urine pH (5.0-8.5) Ur Specific [place] (1.005-1.030) Urine Protein (NEG) mg/dl Urine Glucose (UA) (NEG) mg/dL Urine Ketones (NEG) Urine Occult Blood (NEG) Urine Nitrate (NEG) Urine Bilirubin (NEG) Urine Urobilinogen (0.2) mg/dL Ur Leukocyte Esterase (NEG) Urine RBC (NONE) /hpf Urine WBC (NONE) Ur Squamous Epith Cells (NONE) Ur Renal Epithelial Cell (NONE) Urine Crystals Urine Bacteria (NONE) Urine Casts Urine Mucus (NONE) Urine Trichomonas (NONE) Urine Yeast (NONE) Ur Random Creatinine MG/DL Ur Random Sodium (30-90) MMOL/L 06/18/17 06/18/17 06/19/17 Range/Units 22:01 22:02 05:15 WBC (4.8-10.8) 10^3/uL RBC (4.70-6.10) 10^6/uL Hgb (14.0-18.0) g/dL Hct (42.0-52.0) % MCV (80-90) FL MCH (27-31) PG MCHC (33-37) g/dL RDW Coeff of Urban (11.5-14.5) % Plt Count (140-350) 10*3/uL MPV (7.4-12.2) FL Neutrophils % (Manual) (50-80) % Band Neutrophils % (0-10) % Lymphocytes % (Manual) (10-50) % Monocytes % (Manual) (0-12) % Eosinophils % (Manual) (0-8) % Basophils % (Manual) (0-1) % Metamyelocytes % Myelocytes % Promyelocytes % Blast Cells WBC Morphology Comment (NORM) Plt Morphology Comment (NORM) RBC Morph Comment (NORM) PT (9.7-11.4) secs INR (0.00-5.90) N/A Sodium 114 L* (135-145) meq/L Potassium 5.7 H (3.8-5.2) meq/L Chloride 83 L (98-112) meq/L Carbon Dioxide 14 L (23-33) meq/L Anion Gap 17 (5-20) BUN 75 H (7-22) mg/dL Creatinine 2.8 H (0.70-1.50) mg/dL Estimated GFR 25 (>60 ml/min/1.73m(2)) BUN/Creatinine Ratio 26.78 H (6-20) Glucose 87 (78-110) mg/dL Calculated Osmolality 258.0 L (267-292) mOsm/kg Calcium 8.9 (8.7-10.7) mg/dL Total Bilirubin 22.6 H (0.3-1.2) mg/dL AST 84 H (21-57) IU/L ALT 48 (21-72) IU/L Alkaline Phosphatase 597 H (38-126) IU/L Ammonia 65 H (9.0-33.0) UMOL/L Total Protein 5.9 L (6.1-8.0) g/dL Albumin 3.3 L (3.5-4.8) g/dL Globulin 2.6 (2.50-4.10) g/dL Albumin/Globulin Ratio 1.20 L (1.3-2.0) mg/g Ur Collection Type Clean catch urine Urine Color Yellow Urine Clarity Clear (CLEAR) Urine pH 5.0 (5.0-8.5) Ur Specific [place] 1.010 (1.005-1.030) Urine Protein Trace (NEG) mg/dl Urine Glucose (UA) Negative (NEG) mg/dL Urine Ketones Trace (NEG) Urine Occult Blood Trace-intact (NEG) Urine Nitrate Negative (NEG) Urine Bilirubin Large (NEG) Urine Urobilinogen 0.2 (0.2) mg/dL Ur Leukocyte Esterase Negative (NEG) Urine RBC 0-1 (NONE) /hpf Urine WBC 0-1 (NONE) Ur Squamous Epith Cells Moderate (NONE) Ur Renal Epithelial Cell None (NONE) Urine Crystals None Urine Bacteria Few (NONE) Urine Casts Moderate H Urine Mucus Few (NONE) Urine Trichomonas None (NONE) Urine Yeast None (NONE) Ur Random Creatinine 120.9 MG/DL Ur Random Sodium 5 L (30-90) MMOL/L Objective : Exam - General General Appearance: No Acute Distress, Cooperative Additional General Exam Details: Vital Signs (24 hrs) Temp Pulse Resp BP Pulse Ox 06/19/17 09:30 96.9 F 95 16 123/78 96 06/18/17 20:40 97.5 F 99 18 120/73 91 06/18/17 16:15 98.4 F 107 H 12 115/69 96 - Eye Eye Exam: Scleral Icterus - Respiratory Respiratory Exam: Breathing Non Labored, Decreased Breath Sounds - Cardiovascular Cardiovascular Exam: RRR, No Murmur, No Clicks, No Gallops, No Rubs, No JVD - GI/Abdominal GI/Abdominal Exam: Normal Bowel Sounds, Distended, Positive for Ascites Additional GI/Abdominal Exam Details: tender to palpation - Exam: Frye Catheter in Place (urine concentrated, dark) - Extremities Extremities Exam: No Clubbing Present, No Cyanosis Present, +1 Edema - Neurological Neurological Exam: Alert, No Facial Droop, Speech Intact / Clear, Moves All Extremities Equally Assessment and Plan - Patient Problems (1) Cirrhosis Current Visit: Yes Status: Acute Code(s): K74.60 - Unspecified cirrhosis of liver Qualifiers: Hepatic cirrhosis type: other cirrhosis Qualified Code(s): K74.69 - Other cirrhosis of liver (2) Acute renal failure Current Visit: Yes Status: Acute Code(s): N17.9 - Acute kidney failure, unspecified Qualifiers: Acute renal failure type: with acute tubular necrosis Qualified Code(s): N17.0 - Acute kidney failure with tubular necrosis (3) Hepatic encephalopathy Current Visit: Yes Status: Acute Code(s): K72.90 - Hepatic failure, unspecified without coma (4) Metastases to the liver Current Visit: Yes Status: Chronic Code(s): C78.7 - Secondary malignant neoplasm of liver and intrahepatic bile duct (5) Esophageal cancer Current Visit: Yes Status: Chronic Code(s): C15.9 - Malignant neoplasm of esophagus, unspecified Qualifiers: Malignant neoplasm of esophagus location: lower third - Assessment / Plan Additional Assessment/Plan Details: FeNa indicates that there is a prerenal component to renal failure, but oliguric. Patient and family not interested in trying fluids knowing prognosis is grim for survival despite medical therapy. They request treatment of primary symptoms of pain and discomfort. I think we will let patient visit family and friends, but likely start morphine drip tonight for pain control, benzodiazepines for agitation and seizure prevention with low sodiums. family in agreement with the plan. patient alert and lucid, but unclear with encephalopathy that he fully understands how ill he is. ascites is completely back now, but will hold off on tap due to prognosis
[2017-06-19] MEDS ORDERED: DIAZEPAM 10 MG/2 ML (5 MG/1 ML) CARPUJECT IVP ONE (17:38)
[2017-06-19] MEDS ORDERED: Morphine Syringe 300mg/30ml 300 MG/30 ML PCA.SYRING IV ONE (17:38)
[2017-06-19] MEDS ORDERED: Sodium Chloride 0.9% 500 ML ONE (17:43)
[2017-06-19] MEDS ORDERED: Morphine Syringe 300mg/30ml 300 MG/30 ML PCA.SYRING IV SCH (17:45)
[2017-06-20] MEDS: NORMAL SALINE 10 ML SYRINGE FLUSH IVP PRN (01:26)
--- NOTE | 2017-06-20 02:32 | DCSUMMARY ---
Hospitalization Summary Admit Date: 06/20/17 Discharge Date: 06/18/17 Primary Diagnosis:: metastatic esophageal cancer with liver failure Hospital Course: This is a 46 YO male that was admitted with cirrhosis, renal failure, related to metastatic disease and burden in the liver. The patient and his family requested primary treatment of his symptoms after discussion of his care revealed that his prognosis was poor for survival despite any treatments we could offer medically. He also had renal failure and advanced hepatic encephalopathy, grade 3 to 4. He did not respond to lactulose therapy, his kidneys and liver function worsened and with all that in mind, we placed the patient on morphine and valium for treatment of his significant abdominal pain and primary symptoms of pain and discomfort. He passed on 06/20/2017, at 0150 AM Exam - - Exam: on exam, patient found to be . - Vitals Vital Signs: Vital Signs Temperature 96.9 F Temperature Source Temporal Artery Scan Pulse Rate [Pulse Oximeter] 95 Respiratory Rate 16 Blood Pressure [Right Arm] 123/78 Pulse Ox 96 Oxygen Delivery Method Room Air Height 5 ft 10 in Weight 140 lb Patient Problems - Patient Problem List (1) Cirrhosis Current Visit: Yes Status: Acute Code(s): K74.60 - Unspecified cirrhosis of liver Qualifiers: Hepatic cirrhosis type: other cirrhosis Qualified Code(s): K74.69 - Other cirrhosis of liver Category: Medical (2) Acute renal failure Current Visit: Yes Status: Acute Code(s): N17.9 - Acute kidney failure, unspecified Qualifiers: Acute renal failure type: with acute tubular necrosis Qualified Code(s): N17.0 - Acute kidney failure with tubular necrosis Category: Medical (3) Hepatic encephalopathy Current Visit: Yes Status: Acute Code(s): K72.90 - Hepatic failure, unspecified without coma Category: Medical (4) Metastases to the liver Current Visit: Yes Status: Acute Code(s): C78.7 - Secondary malignant neoplasm of liver and intrahepatic bile duct Category: Medical (5) Esophageal cancer Current Visit: Yes Status: Acute Code(s): C15.9 - Malignant neoplasm of esophagus, unspecified Qualifiers: Malignant neoplasm of esophagus location: lower third Category: Medical
== END 2017-06-20 03:56 | disposition expired | DRG 375 ==
LOC: MED/SURG 16:50
PROVIDERS: ADMIT Family Medicine; ATTEND Family Medicine